=== PATIENT | female | born 1960 | race Native Hawaiian/Other Pacific Islander ===

== ENCOUNTER 2018-03-19 10:55 | Emergency (ER) | payer OTHER ==
[2018-03-19 11:13] VITALS: BP 149/71; PULSE 57; RESP 18; TEMP 97.8; O2SAT 98
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
== END 2018-03-19 11:44 | disposition home or self-care (01) ==
LOC: ED 10:55
DX: M62.838 Other muscle spasm (principal); I10 Essential (primary) hypertension